=== PATIENT | female | born 1995 | race Caucasian/White ===

== ENCOUNTER 2018-08-21 15:38 | Observation (INO) | payer BC ==
[~2018-08-21] VITALS: Ht 165.1 cm; Wt 95.0 kg
[2018-08-21] MEDS ORDERED: OXYTOCIN 30U/ 0.9% NaCL 500ML 500 ML IV PRN (22:00)
[2018-08-21] MEDS ORDERED: FENTANYL PF 100 MCG/2ML IV PRN (22:00)
[2018-08-21] MEDS ORDERED: TERBUTALINE 1 MG/ML, 1ML IVPush PRN (22:00)
[2018-08-21] MEDS ORDERED: ONDANSETRON 2MG/ML, 2ML IVPush PRN (22:00)
[2018-08-21] MEDS ORDERED: CALCIUM CARBONATE 500 MG TAB.CHEW PO PRN (22:00)
[2018-08-21] MEDS ORDERED: MISOPROSTOL 25 MCG TABLET VG PRN (22:00)
[2018-08-21] MEDS ORDERED: OXYTOCIN 30U/ 0.9% NaCL 500ML 500 ML IV ONE (22:00)
[2018-08-21] MEDS ORDERED: D5%-LACTATED RINGERS 1,000 ML IV SCH (22:00)
[2018-08-21] MEDS ORDERED: FENTANYL PF 100 MCG/2ML IVPush PRN (22:00)
[2018-08-21] MEDS ORDERED: NEWBORN KIT ONE (22:01)
[2018-08-21] MEDS ORDERED: MISOPROSTOL 25 MCG TABLET ONE (22:01)
[2018-08-21] MEDS ORDERED: OXYTOCIN 30U/ 0.9% NaCL 500ML 500 ML ONE (22:02)
[2018-08-21] MEDS ORDERED: MISOPROSTOL 200 MCG TABLET ONE (22:02)
[2018-08-21 22:26] LABS: BASOPHILS # (AUTO) 0.04 x10^3/uL (0-0.1); BASOPHILS % (AUTO) 0 % (0-1); EOSINOPHILS # (AUTO) 0.08 x10^3/uL (0-0.4); EOSINOPHILS % (AUTO) 1 % (1-7); LYMPHOCYTES # (AUTO) 2.12 x10^3/uL (1-3.4); LYMPHOCYTES % (AUTO) 22 % (22-44); MD NO; MEAN CORPUSCULAR HGB CONC 34.1 g/dL (32.4-35.8); MEAN CORPUSCULAR VOLUME 90.8 fL (80-100); MEAN PLATELET VOLUME 7.7 fL (7.4-10.4); MONOCYTES # (AUTO) 0.67 x10^3/uL (0.2-0.8); MONOCYTES % (AUTO) 7 % (2-9); NEUTROPHILS # (AUTO) 6.69 x10^3/uL (1.8-6.8); NEUTROPHILS % (AUTO) 70 % (42-75); PLATELET COUNT 255 x10^3/uL (130-400); RED BLOOD COUNT 4.58 x10^6/uL (3.82-5.3); RED CELL DISTRIBUTION WIDTH 13.1 % (9.6-15.2)
[2018-08-21 22:36] LABS: ALANINE AMINOTRANSFERASE 18 U/L (12-78); ALBUMIN 2.8 g/dL (3.4-5.0); ANION GAP 9 mmol/L (5-15); CHLORIDE 108 mmol/L (98-107); CREATININE 0.63 mg/dL (0.55-1.02)
[2018-08-21 22:39] LABS: ALKALINE PHOSPHATASE 160 U/L (45-117); BILIRUBIN,TOTAL 0.2 mg/dL (0.2-1.0)
[2018-08-21] MEDS ORDERED: LIDOCAINE-MPF 1%, 5ML ONE (22:43)
[2018-08-21] MEDS: LACTATED RINGERS 1,000 ML IV SCH (23:09)
[2018-08-21 23:17] LABS: MICROSCOPIC AUTO
[2018-08-21 23:20] VITALS: BP 135/86
[2018-08-22] MEDS: LACTATED RINGERS 1,000 ML IV SCH (05:15)
== END 2018-08-22 21:20 | disposition home or self-care (01) ==
LOC: LDIP 21:58 → INTOOBSV 21:58
PROVIDERS: ADMIT Obstetrics & Gynecology; ATTEND Obstetrics & Gynecology
DX: O14.03 Mild to moderate pre-eclampsia, third trimester (principal); O99.343 Other mental disorders complicating pregnancy, third trimester; F32.9 Major depressive disorder, single episode, unspecified; Z3A.38 38 weeks gestation of pregnancy
CPT/HCPCS: 36415; 80053; 81001; 84550; 85025; 86850; 86900; 96365; 96366; G0378; J2590; J7120

== ENCOUNTER 2018-08-27 06:05 | Inpatient (IN) | payer BC ==
[~2018-08-27] VITALS: Ht 165.1 cm; Wt 94.0 kg
[2018-08-27] MEDS ORDERED: OXYTOCIN 30U/ 0.9% NaCL 500ML 500 ML IV PRN (06:07)
[2018-08-27] MEDS ORDERED: OXYTOCIN 30U/ 0.9% NaCL 500ML 500 ML IV ONE (06:07)
[2018-08-27] MEDS ORDERED: D5%-LACTATED RINGERS 1,000 ML IV SCH (06:07)
[2018-08-27] MEDS ORDERED: TERBUTALINE 1 MG/ML, 1ML IVPush PRN (06:30)
[2018-08-27] MEDS ORDERED: FENTANYL PF 100 MCG/2ML IV PRN (06:30)
[2018-08-27] MEDS ORDERED: CALCIUM CARBONATE 500 MG TAB.CHEW PO PRN (06:30)
[2018-08-27] MEDS ORDERED: ONDANSETRON 2MG/ML, 2ML IVPush PRN ×2 (06:30→13:00)
[2018-08-27] MEDS ORDERED: FENTANYL PF 100 MCG/2ML IVPush PRN (06:30)
[2018-08-27] MEDS ORDERED: NEWBORN KIT ONE (06:33)
[2018-08-27 06:34] VITALS: BP 129/80
[2018-08-27] MEDS ORDERED: OXYTOCIN 30U/ 0.9% NaCL 500ML 500 ML ONE ×2 (06:42→17:51)
[2018-08-27] MEDS: LACTATED RINGERS 1,000 ML IV SCH ×2 (06:44→11:52)
[2018-08-27 06:55] LABS: BASOPHILS # (AUTO) 0.04 x10^3/uL (0-0.1); BASOPHILS % (AUTO) 1 % (0-1); EOSINOPHILS % (AUTO) 1 % (1-7); LYMPHOCYTES # (AUTO) 2.04 x10^3/uL (1-3.4); LYMPHOCYTES % (AUTO) 28 % (22-44); MD NO; MEAN CORPUSCULAR HGB CONC 34.5 g/dL (32.4-35.8); MEAN CORPUSCULAR VOLUME 89.9 fL (80-100); MEAN PLATELET VOLUME 7.8 fL (7.4-10.4); MONOCYTES # (AUTO) 0.54 x10^3/uL (0.2-0.8); MONOCYTES % (AUTO) 7 % (2-9); NEUTROPHILS # (AUTO) 4.63 x10^3/uL (1.8-6.8); NEUTROPHILS % (AUTO) 63 % (42-75); PLATELET COUNT 225 x10^3/uL (130-400); RED BLOOD COUNT 4.24 x10^6/uL (3.82-5.3); RED CELL DISTRIBUTION WIDTH 13.1 % (9.6-15.2)
[2018-08-27 08:15] VITALS: BP 108/60
[2018-08-27] MEDS ORDERED: FENTANYL PF 100 MCG/2ML ONE (11:14)
[2018-08-27] MEDS ORDERED: FENTANYL/BUPIV./NS/PF 250 ML EPIDCONT SCH ×2 (11:52→12:40)
[2018-08-27] MEDS ORDERED: BUPIVACAINE 0.25% ONE (12:13)
[2018-08-27] MEDS ORDERED: LIDOCAINE/PF 1.5%-EPI 1:200K, 30ML ONE (12:15)
[2018-08-27] MEDS ORDERED: FENTANYL PF 500 MCG, BUPIVACAINE/PF 0.5%, 30ML 62.5 ML in SODIUM CHLORIDE 0.9% 177.5 ML EPIDCONT SCH (12:30)
[2018-08-27] MEDS ORDERED: LACTATED RINGERS 1,000 ML IV SCH (12:40)
[2018-08-27] MEDS ORDERED: NALOXONE 0.4 MG/ML, 1ML IVPush PRN (13:00)
[2018-08-27] MEDS ORDERED: LACTATED RINGERS 1,000 ML IVBOLUS PRN (13:00)
[2018-08-27] MEDS ORDERED: EPHEDRINE 50 MG/ML, 1ML IVPush PRN (13:00)
[2018-08-27] MEDS ORDERED: DIPHENHYDRAMINE 50 MG/ML, 1ML IVPush PRN (13:00)
[2018-08-27] MEDS ORDERED: LIDOCAINE 1%, 20ML ONE (16:22)
[2018-08-27] MEDS ORDERED: MISOPROSTOL 200 MCG TABLET ONE (16:23)
[2018-08-27] MEDS: OXYTOCIN 30U/ 0.9% NaCL 500ML 500 ML IV SCH (17:12)
[2018-08-27] MEDS ORDERED: DOCUSATE 100 MG CAPSULE PO PRN (17:30)
[2018-08-27] MEDS ORDERED: ACETAMINOPHEN 325 MG TABLET PO PRN (17:30)
[2018-08-27] MEDS ORDERED: DIPH,PERTUSS(ACELL),TET VAC/PF NC IM-VACC PRN (17:30)
[2018-08-27] MEDS ORDERED: ONDANSETRON 2MG/ML, 2ML IV PRN (17:30)
[2018-08-27] MEDS ORDERED: MISOPROSTOL 200 MCG TABLET PR PRN (17:30)
[2018-08-27] MEDS ORDERED: HYDROcodone/APAP 5/325 TABLET PO PRN ×2 (17:30)
[2018-08-27] MEDS ORDERED: METHYLERGONOVINE 0.2 MG/ML IM PRN (17:30)
[2018-08-27 19:30] VITALS: BP 116/63
[2018-08-28 00:01] VITALS: BP 121/87
[2018-08-28] MEDS: OXYTOCIN 30U/ 0.9% NaCL 500ML 500 ML IV SCH (00:49)
[2018-08-28] MEDS: IBUPROFEN 800 MG TABLET PO PRN ×2 (01:22→09:23)
[2018-08-28 04:17] VITALS: BP 113/68
[2018-08-28 06:24] LABS: BASOPHILS # (AUTO) 0.04 x10^3/uL (0-0.1); BASOPHILS % (AUTO) 0 % (0-1); EOSINOPHILS # (AUTO) 0.04 x10^3/uL (0-0.4); EOSINOPHILS % (AUTO) 0 % (1-7); LYMPHOCYTES # (AUTO) 2.19 x10^3/uL (1-3.4); LYMPHOCYTES % (AUTO) 15 % (22-44); MD NO; MEAN CORPUSCULAR HEMOGLOBIN 30.4 pg (27.0-34.8); MEAN CORPUSCULAR HGB CONC 33.4 g/dL (32.4-35.8); MEAN PLATELET VOLUME 7.6 fL (7.4-10.4); MONOCYTES # (AUTO) 0.94 x10^3/uL (0.2-0.8); MONOCYTES % (AUTO) 7 % (2-9); NEUTROPHILS # (AUTO) 11.09 x10^3/uL (1.8-6.8); NEUTROPHILS % (AUTO) 78 % (42-75); PLATELET COUNT 221 x10^3/uL (130-400); RED BLOOD COUNT 3.84 x10^6/uL (3.82-5.3); RED CELL DISTRIBUTION WIDTH 13.2 % (9.6-15.2)
[2018-08-28 07:30] VITALS: BP 111/71
[2018-08-28] MEDS ORDERED: PRENATAL VIT/IRON/FA 1 EACH TABLET PO SCH (09:00)
[2018-08-28] MEDS ORDERED: IBUP-1222 PO (15:58)
== END 2018-08-28 17:05 | disposition home or self-care (01) | DRG 807 ==
LOC: LDIP 06:05 → 2NW 18:22
PROVIDERS: ADMIT Obstetrics & Gynecology; ATTEND Obstetrics & Gynecology
PROC: 10E0XZZ Delivery of Products of Conception, External Approach (ICD-10-PCS; principal; 2018-08-27)
PROC: 0KQM0ZZ Repair Perineum Muscle, Open Approach (ICD-10-PCS; 2018-08-27)
PROC: 3E0R3BZ Introduction of Anesthetic Agent into Spinal Canal, Percutaneous Approach (ICD-10-PCS; 2018-08-27)
PROC: 00HU33Z Insertion of Infusion Device into Spinal Canal, Percutaneous Approach (ICD-10-PCS; 2018-08-27)
DX: O69.3XX0 Labor and delivery complicated by short cord, not applicable or unspecified (principal); Z37.0 Single live birth; O36.5930 Maternal care for other known or suspected poor fetal growth, third trimester, not applicable or unspecified; O14.04 Mild to moderate pre-eclampsia, complicating childbirth; Z3A.38 38 weeks gestation of pregnancy; O99.344 Other mental disorders complicating childbirth; Z82.49 Family history of ischemic heart disease and other diseases of the circulatory system; O70.1 Second degree perineal laceration during delivery; O71.82 Other specified trauma to perineum and vulva
CPT/HCPCS: 36415; 85025; 86850; 86900; G0378; J3010; J3490; J2590; J7050; J7120